=== PATIENT | female | born 1935 | race Caucasian/White ===

== ENCOUNTER → 2016-10-03 07:30 | Day surgery (SDC) | payer MEDICARE ==
[2016-09-30 12:05] LABS: HEMATOCRIT 41.8 % (36.0-48.0); HEMOGLOBIN 13.7 g/dL (12-16); MCH 31.1 pg (26.0-34.0); MCHC 32.8 g/dL (31.0-37.0); MEAN PLATELET VOLUME 9.9 fL (7.4-10.4); RBC 4.4 10x6/uL (4.00-5.40); RDW 13.4 % (11.5-14.5); WBC 5.2 10x3/uL (4.8-10.8)
[~2016-10-03] VITALS: Ht 147.3 cm; Wt 90.7 kg
[~2016-10-03 07:30] MED LIST: ALENDRONATE SOD70 MG PO; ASPIRIN EC81 M1 PO; BIOTIN5 MG PO; CALTRATE 600 M600 M1 PO; DITROPAN X10 MG/BOTT PO; FISH OIL 1,2001 CAP PO; HYDROCODON-ACE1 EAC7 PO; MULTI-DAY VITAM1 TAB PO; OXYCODONE HCL5 MG PO; PRILOSEC20 MG PO; PROBIOTIC1 EAC1 PO; VITAMIN C1000 MG PO; VITAMIN D31000 UNIT PO
[2016-10-03 09:02] VITALS: BP 149/60; Ht 147.3 cm; Wt 90.7 kg
--- NOTE | 2016-10-03 14:24 | OP ---
PATIENT NAME: SHELLY SHELDON MEDICAL RECORD: [id number] :39 LOCATION:D.OPS ADMISSION DATE: SURGEON: EUGENIA LUNDBERG MD DATE OF OPERATION: 10/03/2016 SURGEON: Eugenia Lundberg MD PREOPERATIVE DIAGNOSIS: Incisional hernia. POSTOPERATIVE DIAGNOSIS: Incisional hernia. PROCEDURE PERFORMED: Incisional hernia repair with Ventralight ST mesh. ANESTHESIA: General. COMPLICATIONS: None. SPECIMENS: Hernia sac. Case was contaminated. ESTIMATED BLOOD LOSS: 30 cc. OPERATIVE COURSE: After consent was obtained, the patient was taken to the operating room and placed in the supine position on the operating table. Next, general anesthesia was given via endotracheal intubation after a timeout was performed to confirm the correct patient and procedure. The abdomen was prepped and draped in typical sterile fashion. Ioban dressing was placed. Local anesthetic was injected at the subxiphoid incision site. Skin was incised using a 15 blade scalpel. Dissection continued with electrocautery until the fascia was identified. The hernia sac was identified and excised from the fascial edges. Using electrocautery, the hernia sac was sent for permanent pathology. The hernia defect was approximately 5 cm in width. A medium Ventralight ST mesh was used. The mesh was secured in all 4 quadrants using 0 Prolene suture. In an underlay fashion, the mesh was secured with the 0 Prolene suture. Next, the hernia defect was then closed primarily using interrupted 0 Prolene suture and to include the strap portion of the mesh and the strap was removed. When the hernia defect closed, the wound was copiously irrigated and suctioned. Careful attention was paid to hemostasis. Next, the subcutaneous tissue was closed with 3-0 Vicryl suture. The skin was closed with 4-0 Stratafix, Mastisol and Steri-Strips. At the end of the case, all needle and instrument counts were correct. No complications occurred. The patient was extubated and transferred to the PACU in stable condition. TRANSINT:[id number] Voice Confirmation ID: [id number] DOCUMENT ID: [id number] EUGENIA LUNDBERG MD at 1424 CC: [id number] DICTATION DATE: 10/03/16 1129 FLOOR COVERINGS INSTALLER: 10/03/[address] [place] [address]
== END | disposition home or self-care (01) ==
LOC: D.OPS 07:30 → D.PAN 10:00
PROVIDERS: Anesthesiology
DX: K43.2 Incisional hernia without obstruction or gangrene (principal)